=== PATIENT | female | born 1995 | race Caucasian/White ===

== ENCOUNTER 2022-03-27 00:33 | Outpatient (CLI) | payer MEDICAID ==
[~2022-03-27] VITALS: Ht 165.1 cm; Wt 75.5 kg
[2022-03-27] MEDS ORDERED: DOCO200C4 PO (00:37)
[2022-03-27 00:51] VITALS: BP 125/71
[2022-03-27 01:04] LABS: BILIRUBIN,URINE NEGATIVE (NEGATIVE); CLARITY,URINE CLEAR; COLOR,URINE YELLOW; GLUCOSE, URINE (UA) NEGATIVE (NEGATIVE); KETONES,URINE NEGATIVE (NEGATIVE); LEUKOCYTE ESTERASE ,URINE TRACE (NEGATIVE); NITRITE,URINE NEGATIVE (NEGATIVE); PH,URINE 6.5 (5-9); PROTEIN,URINE NEGATIVE (NEGATIVE)
[2022-03-27 01:18] LABS: BACTERIA,URINE TRACE /HPF; WBC,URINE RARE /HPF
[2022-03-27 01:19] VITALS: BP 125/71
[2022-03-27 01:26] VITALS: BP 125/71
[2022-03-27 01:29] LABS: AMPHETAMINE SCREEN, URINE POSITIVE (NEGATIVE); BARBITURATE SCREEN URINE NEGATIVE (NEGATIVE); BENZODIAZEPINES SCREEN URINE NEGATIVE (NEGATIVE); CANNABINOID SCREEN, URINE NEGATIVE (NEGATIVE); COCAINE SCREEN URINE NEGATIVE (NEGATIVE); METHADONE STAT NEGATIVE (NEGATIVE); OPIATE SCREEN URINE NEGATIVE (NEGATIVE); OXYCODONE STAT NEGATIVE (NEGATIVE); PROPOXYPHENE STAT NEGATIVE (NEGATIVE); TRICYCLIC ANTIDEPRESSANTS SCRE NEGATIVE (NEGATIVE)
--- NOTE | 2022-03-28 08:38 | Physician Query-Final Dx ---
ANNA03/28/22 0838: Clinic Account Progress/Dx Physician Query: Please give diagnosis Please include # weeks gestation Date of Service March 27, 2022 at 00:16 JAYLEN HUNTER MD 04/15/22 1404: Clinic Account Progress/Dx DIAGNOSIS: Diagnosis false labor ANNA,NovMarch 28, 2022 08:38 JAYLEN HUNTER MD April 15, 2022 14:04
== END 2022-03-27 02:55 | disposition left against medical advice (07) ==
LOC: LDRP 00:33 → WSo 00:33 → LDRP 02:10 → UNDOADMIN 02:11 → LDRP 02:11 → UNDODISIN 02:35 → WSo 02:55
PROVIDERS: ATTEND Obstetrics & Gynecology
DX: O47.1 False labor at or after 37 completed weeks of gestation (principal); Z3A.40 40 weeks gestation of pregnancy
CPT/HCPCS: 80306; 81000; G0463; 99213

== ENCOUNTER 2022-03-29 02:00 | Inpatient (IN) | payer SELFPAY ==
[~2022-03-29] VITALS: Ht 162.6 cm; Wt 77.5 kg
[~2022-03-29 02:00] MED LIST: DOCO200C4 PO
[2022-03-29 02:15] VITALS: BP 130/77
[2022-03-29 02:40] LABS: BILIRUBIN,URINE NEGATIVE (NEGATIVE); CLARITY,URINE CLEAR; COLOR,URINE YELLOW; GLUCOSE, URINE (UA) NEGATIVE (NEGATIVE); KETONES,URINE NEGATIVE (NEGATIVE); LEUKOCYTE ESTERASE ,URINE NEGATIVE (NEGATIVE); NITRITE,URINE NEGATIVE (NEGATIVE); PROTEIN,URINE NEGATIVE (NEGATIVE)
[2022-03-29 02:47] LABS: BACTERIA,URINE LARGE /HPF; WBC,URINE RARE /HPF
[2022-03-29 02:55] LABS: AMPHETAMINE SCREEN, URINE POSITIVE (NEGATIVE); BARBITURATE SCREEN URINE NEGATIVE (NEGATIVE); BENZODIAZEPINES SCREEN URINE NEGATIVE (NEGATIVE); CANNABINOID SCREEN, URINE NEGATIVE (NEGATIVE); COCAINE SCREEN URINE NEGATIVE (NEGATIVE); METHADONE STAT NEGATIVE (NEGATIVE); OPIATE SCREEN URINE NEGATIVE (NEGATIVE); OXYCODONE STAT NEGATIVE (NEGATIVE); PROPOXYPHENE STAT NEGATIVE (NEGATIVE); TRICYCLIC ANTIDEPRESSANTS SCRE NEGATIVE (NEGATIVE)
--- NOTE | 2022-03-29 09:09 | Diagnostic Imaging Report ---
HISTORY: , no care. TECHNIQUE: Transabdominal ultrasound of the gravid uterus. COMPARISON: None. FINDINGS: The biophysical profile score is 8 out of 8. The heart rate measures 155 BPM. presentation is cephalic. Amniotic fluid index measures 17.2 cm. Other findings including anatomic survey are in a separate report. IMPRESSION: Biophysical profile score is 8 out of 8. Dictated by: Dictated on workstation # [id number]
--- NOTE | 2022-03-29 09:09 | Diagnostic Imaging Report ---
INDICATION: . No care. 40 weeks and 2 days by LMP TECHNIQUE: Multiple real-time grayscale images were obtained over the gravid uterus. COMPARISON: None FINDINGS: There is a single live intrauterine gestation in cephalic presentation. The placenta is anterior fundal and appears mature. There is no evidence of previa. The four-chamber heart is not well seen. heart rate measures 155 BPM. Stomach is seen. The kidneys are seen. The bladder is seen. 2 umbilical arteries are seen. The cerebellum and cisterna magna are seen. The lateral ventricle is suboptimally visualized. The cord insertion is somewhat visible with color Doppler but not well seen on grayscale. Most of the upper and lower spine is visible. The amniotic fluid index measures 17.2 cm. Biometrical measurements are as follows: Biparietal 9.30 cm, age 37 weeks 6 days. Head circumference 34.04 cm, age 39 weeks 2 days. Abdominal circumference 35.65 cm, age 39 weeks 4 days. Femur length 7.14 cm, age 36 weeks 5 days. Sonographic estimate age: 38 weeks 3 days. Sonographic estimated date of delivery: 04/09/2022. Estimated Weight: 3557 gm (+/- 519 gm). LMP percentile: NA%. heart rate: 155 beats per minute. number: 1 of 1. IMPRESSION: 1. Single live intrauterine gestation measuring at 38 weeks and 3 days, which is within range of the clinical dates. 2. Anatomic survey is suboptimal due to age. Multiple structures are not visible. No abnormality is seen. Dictated by: Dictated on workstation # [id number]
[2022-03-29 09:20] VITALS: BP 132/86
[2022-03-29] MEDS: D5 LR IV SOLUTION 1,000 ML IV SCH ×4 (09:39→22:11)
[2022-03-29 10:01] LABS: BASOPHILS # (AUTO) 0.1 10^3/uL (0.0-0.1); BASOPHILS % (AUTO) 1 % (0-10); EOSINOPHILS # (AUTO) 0.5 10^3/uL (0.0-0.3); EOSINOPHILS % (AUTO) 3 % (0-10); HEMATOCRIT 27 % (35-52); HEMOGLOBIN 8.3 g/dL (11.5-16.0); LYMPHOCYTES # (AUTO) 2.2 10^3/uL (1.0-4.0); LYMPHOCYTES % (AUTO) 15 % (12-44); MEAN CORPUSCULAR HEMOGLOBIN 22 pg (25-34); MEAN CORPUSCULAR HGB CONC 30 g/dL (32-36); MEAN CORPUSCULAR VOLUME 71 fL (80-99); MONOCYTES % (AUTO) 7 % (0-12); NEUTROPHILS # (AUTO) 10.1 10^3/uL (1.8-7.8); NEUTROPHILS % (AUTO) 70 % (42-75); PLATELET COUNT 254 10^3/uL (130-400); WHITE BLOOD COUNT 14.4 10^3/uL (4.3-11.0)
[2022-03-29 10:02] LABS: ALBUMIN 2.9 GM/DL (3.2-4.5); BILIRUBIN,TOTAL 0.2 MG/DL (0.1-1.0); CREATININE SERUM 0.58 MG/DL (0.60-1.30); POTASSIUM 4.5 MMOL/L (3.6-5.0); TOTAL PROTEIN 6.2 GM/DL (6.4-8.2)
[2022-03-29 12:45] VITALS: BP 120/77
--- NOTE | 2022-03-29 14:10 | History & Physical ---
History and Physical Date Seen by Provider: March 29, 2022 Time Seen by Provider: 12:40 This patient is a 26-year-old 1 para 0 female who was admitted last evening with complaint of contractions. She is from [place] and has no local physician. Dr. Hernandez provided care for her through the night which amounted to observation because of her contractions however she demonstrated no cervical change. Call change at 7 AM and I assumed care of the patient at that point Patient has continued to contract since admission off and on sometimes as often as every 2 to 3 minutes and sometimes spaced out to 8 or 10 minutes apart. There is a category 1 heart rate tracing. Patient denies rupture membranes or bleeding. Patient reports that she did have care in [place] but as of yet we have been unable to obtain those records and we continued to pursue those records By patient's description her due date was March 27, 2022 making her 40 weeks and 2 days however we have no confirmation of that. Bedside ultrasound today showed a fetus consistent with 38 weeks and 3 days with no overt anomaly. Patient reports that she did not have a group B strep culture. She reports that she has had no problems or complications with this to date. Allergies are to Valium which causes swelling Medications are none Medical history is none Social history patient denies drug and alcohol use she does smoke about 10 cigarettes a day. Of note is that her urine drug screen was positive for amphetamines and methamphetamines Family history patient has lost significant family history of various cancers including breast and colon Lab work is as follows Laboratory Tests Test 03/29/22 02:00 03/29/22 06:17 03/29/22 09:54 Range/Units Urine Color YELLOW Urine Clarity CLEAR Urine pH 7.0 5-9 Urine Specific [place] <=1.005 1.016-1.022 Urine Protein NEGATIVE NEGATIVE Urine Glucose (UA) NEGATIVE NEGATIVE Urine Ketones NEGATIVE NEGATIVE Urine Nitrite NEGATIVE NEGATIVE Urine Bilirubin NEGATIVE NEGATIVE Urine Urobilinogen 0.2 < = 1.0 MG/DL Urine Leukocyte Esterase NEGATIVE NEGATIVE Urine RBC (Auto) NEGATIVE NEGATIVE Urine RBC NONE /HPF Urine WBC RARE /HPF Urine Squamous Epithelial Cells 2-5 /HPF Urine Crystals NONE /LPF Urine Bacteria LARGE H /HPF Urine Casts NONE /LPF Urine Mucus NEGATIVE /LPF Urine Culture Indicated YES Urine Opiates Screen NEGATIVE NEGATIVE Urine Oxycodone Screen NEGATIVE NEGATIVE Urine Methadone Screen NEGATIVE NEGATIVE Urine Propoxyphene Screen NEGATIVE NEGATIVE Urine Barbiturates Screen NEGATIVE NEGATIVE Ur Tricyclic Antidepressants Screen NEGATIVE NEGATIVE Urine Phencyclidine Screen NEGATIVE NEGATIVE Urine Amphetamines Screen POSITIVE H NEGATIVE Urine Methamphetamines Screen POSITIVE H NEGATIVE Urine Benzodiazepines Screen NEGATIVE NEGATIVE Urine Cocaine Screen NEGATIVE NEGATIVE Urine Cannabinoids Screen NEGATIVE NEGATIVE Sodium Level 136 135-145 MMOL/L Potassium Level 4.5 3.6-5.0 MMOL/L Chloride Level 106 98-107 MMOL/L Carbon Dioxide Level 18 L 21-32 MMOL/L Anion Gap 12 5-14 MMOL/L Blood Urea Nitrogen 13 7-18 MG/DL Creatinine 0.58 L 0.60-1.30 MG/DL Estimat Glomerular Filtration Rate 127 BUN/Creatinine Ratio 22 Glucose Level 93 70-105 MG/DL Calcium Level 9.0 8.5-10.1 MG/DL Corrected Calcium 9.9 8.5-10.1 MG/DL Total Bilirubin 0.2 0.1-1.0 MG/DL Aspartate Amino Transf (AST/SGOT) 18 5-34 U/L Alanine Aminotransferase (ALT/SGPT) 6 0-55 U/L Alkaline Phosphatase 212 H 40-136 U/L Total Protein 6.2 L 6.4-8.2 GM/DL Albumin 2.9 L 3.2-4.5 GM/DL Thyroid Stimulating Hormone (TSH) 1.04 0.35-4.94 UIU/ML White Blood Count 14.4 H 4.3-11.0 10^3/uL Red Blood Count 3.83 3.80-5.11 10^6/uL Hemoglobin 8.3 L 11.5-16.0 g/dL Hematocrit 27 L 35-52 % Mean Corpuscular Volume 71 L 80-99 fL Mean Corpuscular Hemoglobin 22 L 25-34 pg Mean Corpuscular Hemoglobin Concent 30 L 32-36 g/dL Red Cell Distribution Width 17.1 H 10.0-14.5 % Platelet Count 254 130-400 10^3/uL Mean Platelet Volume 10.0 9.0-12.2 fL Immature Granulocyte % (Auto) 4 % Neutrophils (%) (Auto) 70 42-75 % Lymphocytes (%) (Auto) 15 12-44 % Monocytes (%) (Auto) 7 0-12 % Eosinophils (%) (Auto) 3 0-10 % Basophils (%) (Auto) 1 0-10 % Neutrophils # (Auto) 10.1 H 1.8-7.8 10^3/uL Lymphocytes # (Auto) 2.2 1.0-4.0 10^3/uL Monocytes # (Auto) 1.0 0.0-1.0 10^3/uL Eosinophils # (Auto) 0.5 H 0.0-0.3 10^3/uL Basophils # (Auto) 0.1 0.0-0.1 10^3/uL Immature Granulocyte # (Auto) 0.5 H 0.0-0.1 10^3/uL Vital Signs Date Time Temp Pulse Resp B/P (MAP) Pulse Ox O2 Delivery O2 Flow Rate FiO2 03/29/22 09:20 36.8 93 18 132/86 (101) Room Air 03/29/22 02:15 36.8 94 16 130/77 (94) 97 Room Air 03/29/22 02:15 36.8 94 16 97 Room Air 03/29/22 02:15 36.8 94 16 97 Room Air Signs are stable. Patient is afebrile. HEENT exam is normal Neck is supple no lymphadenopathy no thyromegaly Abdomen is gravid soft nontender nondistended Extremities show no clubbing or cyanosis. There is no Homans' sign. Pelvic exam shows a cervix 2 to 3 cm dilated somewhat multipara risk in texture with a presenting part of the vertex at about a -3-4 station monitor shows contractions somewhat irregular off and on up to 2 minutes apart and spaced out up to 10 minutes of heart rate pattern is category 1 Assessment and plan Likely term possibly 40+ weeks gestation we are awaiting outside records for confirmation of her due date. An ultrasound showing 38 weeks gestation today for size would support a somewhere between 35 and 41 weeks. Patient has not demonstrated any cervical change on serial exams however if she does we would allow her to labor. If we can get confirmation of her EDC and she is in fact past 37-38 weeks we likely would go ahead and favor progressing to deliver considering that she is having regular relatively regular contractions We did obtain an ultrasound report from the [facility] showing an ultrasound done early last year with an EDC last year. Is not certain whether this patient had a termination or not but she does professed to have had no chills Patient does not have explanation for her urine drug screen being positive Likely term in early labor Allergies and Home Medications Allergies Coded Allergies: diazepam (Verified Allergy, Severe, throat closed up, 03/27/22) Patient Home Medication List Home Medication List Reviewed: Yes Docosahexanoic Acid ( Dha) 200 Mg Capsule, 200 MG PO, (Reported) Entered as Reported by: GILDARDO DIXON on 03/27/22 0037 MARIYA DAS MD March 29, 2022 14:09
[2022-03-29 17:55] VITALS: BP 122/66
[2022-03-29 19:30] VITALS: BP 129/74
[2022-03-29 23:33] VITALS: BP 116/56
[2022-03-30] VITALS (33 sets, daily range): BP systolic 101–129; BP diastolic 54–88
[2022-03-30] MEDS: D5 LR IV SOLUTION 1,000 ML IV SCH ×2 (02:24→06:25)
--- NOTE | 2022-03-30 08:27 | Progress Note ---
Standard Progress Note Progress Notes/Assess & Plan Date Seen by a Provider: March 30, 2022 Time Seen by a Provider: 08:24 Progress/Assessment & Plan This patient complains of continued and persistent contractions and increasing pain and pressure in the pelvis. She denies rupture membranes or bleeding. On admission her cervix was 2 to 3 cm dilated it had made some changes 3 cm the nurse this morning indicates that the cervix was 4 cm. We discussed active management of labor should she demonstrate cervical change to facilitate the delivery of the baby. Plan is now to go ahead with amniotomy and Pitocin augmentation if necessary. Patient will be allowed an epidural. Vital Signs Date Time Temp Pulse Resp B/P (MAP) Pulse Ox O2 Delivery O2 Flow Rate FiO2 03/30/22 03:32 36.9 71 18 117/56 (76) 96 Room Air 03/29/22 23:33 37.0 73 18 116/56 (76) 95 Room Air 03/29/22 19:30 36.8 67 18 129/74 (92) 98 Room Air 03/29/22 17:55 36.9 95 18 122/66 (84) Room Air 03/29/22 12:45 36.8 95 18 120/77 (91) Room Air 03/29/22 09:20 36.8 93 18 132/86 (101) Room Air I & O 03/30/22 07:00 Intake Total 2000 ml Balance 2000 ml Vital signs are stable. Patient is afebrile. monitor shows a category 1 heart rate tracing and contractions every 2 to 8 minutes waxing and waning The abdomen is benign/gravid Extremities show no clubbing or cyanosis. There is no Homans' sign. Pelvic exam shows a cervix 4 to 5 cm dilated 70% effaced -2 station vertex presentation. Amniotomy is performed and scalp electrode was placed Assessment and plan By patient's report of dating she is now 40 weeks and 3 days ultrasound yesterday demonstrated at 38-3/7-week fetus with estimated weight of almost 8. Amniotomy has been performed as patient has demonstrated cervical change during her period of observation so we will facilitate delivery. Patient will be allowed epidural we anticipate a vaginal delivery MARIYA DAS MD March 30, 2022 8:27 am
[2022-03-30] MEDS ORDERED: D5 LR IV SOLUTION 1,000 ML IV SCH (08:30)
[2022-03-30] MEDS ORDERED: OXYTOCIN PRE-MIX DRIP 500 ML IV SCH ×2 (08:30→14:15)
[2022-03-30] MEDS ORDERED: fentaNYL 2 mcg/ml BUPIVA 0.125 100 ML ONE (08:31)
[2022-03-30] MEDS ORDERED: AMPICILLIN FOR IV USE 2,000 MG in NS (IVPB) 50 ML IV SCH (08:36)
[2022-03-30] MEDS ORDERED: AMPICILLIN 2,000 MG/14.8 ML (IV USE) ONE (08:38)
[2022-03-30] MEDS ORDERED: NS (IVPB) 50 ML ONE (08:39)
[2022-03-30 09:32] LABS: AMPHETAMINE SCREEN, URINE POSITIVE (NEGATIVE); BARBITURATE SCREEN URINE NEGATIVE (NEGATIVE); BENZODIAZEPINES SCREEN URINE NEGATIVE (NEGATIVE); CANNABINOID SCREEN, URINE NEGATIVE (NEGATIVE); COCAINE SCREEN URINE NEGATIVE (NEGATIVE); METHADONE STAT NEGATIVE (NEGATIVE); OPIATE SCREEN URINE NEGATIVE (NEGATIVE); OXYCODONE STAT NEGATIVE (NEGATIVE); PROPOXYPHENE STAT NEGATIVE (NEGATIVE); TRICYCLIC ANTIDEPRESSANTS SCRE NEGATIVE (NEGATIVE)
[2022-03-30] MEDS ORDERED: fentaNYL INJ 100 MCG/2 ML AMP ONE (09:58)
[2022-03-30] MEDS ORDERED: BUPIVACAINE 0.25% 10 ML (SENSORCAINE) VIAL ONE (09:58)
[2022-03-30] MEDS ORDERED: ONDANSETRON 4 MG/2 ML (SDV) Z0FRAN IV PRN (10:45)
[2022-03-30] MEDS ORDERED: NALOXONE 0.4 MG/ML 1 ML (NARCAN) VIAL IV PRN (10:45)
[2022-03-30] MEDS ORDERED: diphenhydrAMINE 50 MG/ML INJ (BENADRYL) IV PRN (10:45)
[2022-03-30] MEDS ORDERED: LACTATED RINGERS 1,000 ML IV SCH (10:45)
[2022-03-30] MEDS ORDERED: EPIDURAL (fentaNYL 2 MCG/ML BUPIVA 0.125%)100 ML BAG EPI PRN (10:45)
[2022-03-30] MEDS ORDERED: AMPICILLIN FOR IV USE 1,000 MG in NS (IVPB) 50 ML IV SCH (12:45)
[2022-03-30] MEDS ORDERED: LIDOCAINE/EPI 2% 1:200,00 (XYLOCAINE) 10 ML VIAL ONE (13:09)
[2022-03-30] MEDS ORDERED: CATHETER FLUSH 10 ML SYR IV SCH (14:00)
[2022-03-30] MEDS ORDERED: ONDANSETRON 4 MG/2 ML (SDV) Z0FRAN IVP PRN (14:15)
[2022-03-30] MEDS ORDERED: BENZOCAINE/MENTHOL (DERMOPLAST) 56 ML CAN TP PRN (14:15)
[2022-03-30] MEDS ORDERED: LIDOCAINE/EPI 2% 1:200,00 (XYLOCAINE) 10 ML VIAL INJ ONE (14:15)
[2022-03-30] MEDS ORDERED: TETANUS,DIPTH,PERTUSS P/F (BOOSTRIX) 0.5 ML VIAL IM ONE (14:15)
[2022-03-30] MEDS ORDERED: oxyCODONE/APAP 5/325MG (PERCOCET 5) TABLET PO PRN (14:15)
[2022-03-30] MEDS: KETOROLAC 30 MG/ML VIAL IVP SCH ×2 (14:32→20:33)
[2022-03-30] MEDS: DOCUSATE SODIUM 100 MG (COLACE) CAP PO SCH (20:33)
--- NOTE | 2022-03-30 20:52 | OPERATIVE REPORT ---
DATE OF SERVICE: 03/30/2022 DELIVERY NOTE The patient delivered by term spontaneous vaginal delivery a viable male with Apgars of 8 and 9 at 1 and 5 minutes respectively, weight of 7 pounds 5 ounces. Cord blood pH of 7.28 and a time of 1329. The delivery was accomplished over a first-degree perineal laceration under epidural analgesia. The infant was bulb suctioned on delivery of the head and again on completion of delivery. The umbilical cord was doubly clamped, the father cut the cord, the baby was taken to the warmer as mom did not want to hold the baby immediately after delivery. The pediatric nurse in attendance for delivery. Care for the baby at the warmer. Placenta delivered spontaneously Blank. It was normal with a 3-vessel cord. The cervix, vagina, rectum, and perineum were examined and found intact, except for a first-degree perineal laceration that was repaired with a single suture of 3-0 Vicryl Rapide in the usual manner with a running lock stitch. The repair was accomplished under the epidural analgesia augmented with 1% lidocaine with epinephrine infiltrated locally as well. Sponge and needle counts were correct after completion of delivery and repair. Blood loss was around 200 to 250 mL. The patient tolerated the delivery well and remained in the LDR for recovery. The baby remained with the mom. Job ID: [id number] DocumentID: [id number] Dictated Date: 03/30/2022 14:17:30 [employer] Manager Architect Date: 03/30/2022 20:51:54 Dictated By: MARIYA DAS MD MTDD
[2022-03-31 00:30] VITALS: BP 118/66
[2022-03-31] MEDS: KETOROLAC 30 MG/ML VIAL IVP SCH (02:52)
[2022-03-31 04:15] VITALS: BP 115/62
--- NOTE | 2022-03-31 08:26 | Progress Note ---
Standard Progress Note Progress Notes/Assess & Plan Date Seen by a Provider: March 31, 2022 Time Seen by a Provider: 08:25 Progress/Assessment & Plan This patient complains of continued and persistent contractions and increasing pain and pressure in the pelvis. She denies rupture membranes or bleeding. On admission her cervix was 2 to 3 cm dilated it had made some changes 3 cm the nurse this morning indicates that the cervix was 4 cm. We discussed active management of labor should she demonstrate cervical change to facilitate the delivery of the baby. Plan is now to go ahead with amniotomy and Pitocin augmentation if necessary. Patient will be allowed an epidural. Vital Signs Date Time Temp Pulse Resp B/P (MAP) Pulse Ox O2 Delivery O2 Flow Rate FiO2 03/30/22 03:32 36.9 71 18 117/56 (76) 96 Room Air 03/29/22 23:33 37.0 73 18 116/56 (76) 95 Room Air 03/29/22 19:30 36.8 67 18 129/74 (92) 98 Room Air 03/29/22 17:55 36.9 95 18 122/66 (84) Room Air 03/29/22 12:45 36.8 95 18 120/77 (91) Room Air 03/29/22 09:20 36.8 93 18 132/86 (101) Room Air I & O 03/30/22 07:00 Intake Total 2000 ml Balance 2000 ml Vital signs are stable. Patient is afebrile. monitor shows a category 1 heart rate tracing and contractions every 2 to 8 minutes waxing and waning The abdomen is benign/gravid Extremities show no clubbing or cyanosis. There is no Homans' sign. Pelvic exam shows a cervix 4 to 5 cm dilated 70% effaced -2 station vertex presentation. Amniotomy is performed and scalp electrode was placed Assessment and plan By patient's report of dating she is now 40 weeks and 3 days ultrasound yesterday demonstrated at 38-3/7-week fetus with estimated weight of almost 8. Amniotomy has been performed as patient has demonstrated cervical change during her period of observation so we will facilitate delivery. Patient will be allowed epidural we anticipate a vaginal delivery March 31, 2022 Patient is without complaint. She is ambulating, voiding, tolerating oral intake well and has good pain control. Vital Signs Date Time Temp Pulse Resp B/P (MAP) Pulse Ox O2 Delivery O2 Flow Rate FiO2 03/31/22 04:15 36.6 66 16 115/62 (79) 95 Room Air 03/31/22 00:30 36.8 72 18 118/66 (83) 95 Room Air 03/30/22 20:33 36.8 62 18 125/80 (95) 95 Room Air 03/30/22 15:42 67 18 121/75 (90) 03/30/22 15:08 80 16 120/71 (87) 03/30/22 14:53 89 16 118/73 (88) 03/30/22 14:23 82 18 123/85 (98) 03/30/22 14:08 88 16 119/88 (98) 03/30/22 13:54 36.9 83 20 101/67 (78) 03/30/22 13:39 65 20 122/54 (76) 03/30/22 13:05 61 18 116/61 (79) 03/30/22 12:45 65 16 119/80 (93) 03/30/22 12:30 66 18 119/76 (90) 03/30/22 12:15 59 18 118/77 (91) 03/30/22 12:00 54 20 119/70 (86) 03/30/22 11:45 65 16 104/59 (74) 98 03/30/22 11:32 37.0 72 18 117/77 (90) 99 03/30/22 11:15 64 20 101/65 (77) 100 03/30/22 11:10 55 18 113/68 (83) 100 03/30/22 11:05 61 18 114/69 (84) 99 03/30/22 11:00 69 18 115/69 (84) 99 Room Air 03/30/22 10:55 66 18 120/70 (87) 99 Room Air 03/30/22 10:47 89 117/70 (86) 99 03/30/22 10:41 75 18 118/67 (84) 99 03/30/22 10:38 83 18 114/68 (83) 100 03/30/22 10:35 65 18 115/55 (75) 100 03/30/22 10:33 82 18 123/73 (90) 93 03/30/22 10:28 79 20 125/74 (91) 100 03/30/22 10:25 83 20 128/78 (95) 100 03/30/22 10:21 85 20 129/79 (96) 100 03/30/22 10:19 77 16 125/69 (87) 100 03/30/22 10:16 82 18 125/71 (89) 100 03/30/22 10:13 72 16 123/61 (81) 99 Room Air I & O 03/31/22 07:00 Intake Total 2100 ml Balance 2100 ml Vital signs are stable. Patient is afebrile. Fundus is firm below the umbilicus and nontender. Extremities show no clubbing or cyanosis. There is no Homans' sign. Assessment and plan day #1 status post term spontaneous vaginal delivery doing well. Plan is for routine convalescent care Final Diagnosis 40-week spontaneous vaginal delivery MARIYA DAS MD March 31, 2022 8:26 am
[2022-03-31] MEDS ORDERED: DOCU100C37 PO (08:28)
[2022-03-31] MEDS ORDERED: IBUP-1780 PO (08:28)
--- NOTE | 2022-03-31 08:30 | Discharge Inst-Surgical ---
Discharge Inst-Surgical Depart Medication/Instructions New, Converted or Re-Newed RX: Call to Patients Pharmacy Consults/Follow Up Patient Instructions: As directed Orders & Referrals Follow Up Appt: Call to make follow up appt. for patient in 4 weeks. Activity Per routine post vaginal delivery instructions. Please call in RX to patient pharmacy. Diet as tolerated Patient may shower or tub bathe as desired. Activity Activity as Tolerated: No Diet Discharge Diet: No Restrictions MARIYA DAS MD March 31, 2022 8:30 am
[2022-03-31 08:45] VITALS: BP 130/63
[2022-03-31] MEDS: DOCUSATE SODIUM 100 MG (COLACE) CAP PO SCH (08:53)
[2022-03-31 12:05] VITALS: BP 135/92
[2022-03-31] MEDS: IBUPROFEN 800 MG (MOTRIN) TAB PO SCH ×2 (12:05→18:06)
[2022-03-31 12:29] VITALS: BP 132/85
--- NOTE | 2022-03-31 13:40 | Anesthesia-Regional Post-Op ---
Regional Patient Condition Mental Status: Alert, Oriented x3 Circulation: Same as Pre-Op Headache: Absent Sensation: Full Recovery Motor Block: Absent Post Op Complications Complications None Follow Up Care/Instructions Patient Instructions None needed. Anesthesia/Patient Condition Patient is doing well, no complaints, stable vital signs, no apparent adverse anesthesia problems. HENRY GARCIA DO March 31, 2022 13:40
[2022-03-31 17:37] VITALS: BP 142/72
[2022-04-01 00:37] VITALS: BP 118/59
[2022-04-01] MEDS: IBUPROFEN 800 MG (MOTRIN) TAB PO SCH ×3 (00:37→11:57)
[2022-04-01] MEDS: DOCUSATE SODIUM 100 MG (COLACE) CAP PO SCH ×2 (00:37→09:40)
[2022-04-01 06:28] VITALS: BP 129/61
[2022-04-01 09:33] VITALS: BP 129/72
--- NOTE | 2022-04-01 10:04 | Progress Note ---
Standard Progress Note Progress Notes/Assess & Plan Date Seen by a Provider: April 01, 2022 Time Seen by a Provider: 10:04 Progress/Assessment & Plan This patient complains of continued and persistent contractions and increasing pain and pressure in the pelvis. She denies rupture membranes or bleeding. On admission her cervix was 2 to 3 cm dilated it had made some changes 3 cm the nurse this morning indicates that the cervix was 4 cm. We discussed active management of labor should she demonstrate cervical change to facilitate the delivery of the baby. Plan is now to go ahead with amniotomy and Pitocin augmentation if necessary. Patient will be allowed an epidural. Vital Signs Date Time Temp Pulse Resp B/P (MAP) Pulse Ox O2 Delivery O2 Flow Rate FiO2 03/30/22 03:32 36.9 71 18 117/56 (76) 96 Room Air 03/29/22 23:33 37.0 73 18 116/56 (76) 95 Room Air 03/29/22 19:30 36.8 67 18 129/74 (92) 98 Room Air 03/29/22 17:55 36.9 95 18 122/66 (84) Room Air 03/29/22 12:45 36.8 95 18 120/77 (91) Room Air 03/29/22 09:20 36.8 93 18 132/86 (101) Room Air I & O 03/30/22 07:00 Intake Total 2000 ml Balance 2000 ml Vital signs are stable. Patient is afebrile. monitor shows a category 1 heart rate tracing and contractions every 2 to 8 minutes waxing and waning The abdomen is benign/gravid Extremities show no clubbing or cyanosis. There is no Homans' sign. Pelvic exam shows a cervix 4 to 5 cm dilated 70% effaced -2 station vertex presentation. Amniotomy is performed and scalp electrode was placed Assessment and plan By patient's report of dating she is now 40 weeks and 3 days ultrasound yesterday demonstrated at 38-3/7-week fetus with estimated weight of almost 8. Amniotomy has been performed as patient has demonstrated cervical change during her period of observation so we will facilitate delivery. Patient will be allowed epidural we anticipate a vaginal delivery March 31, 2022 Patient is without complaint. She is ambulating, voiding, tolerating oral intake well and has good pain control. Vital Signs Date Time Temp Pulse Resp B/P (MAP) Pulse Ox O2 Delivery O2 Flow Rate FiO2 03/31/22 04:15 36.6 66 16 115/62 (79) 95 Room Air 03/31/22 00:30 36.8 72 18 118/66 (83) 95 Room Air 03/30/22 20:33 36.8 62 18 125/80 (95) 95 Room Air 03/30/22 15:42 67 18 121/75 (90) 03/30/22 15:08 80 16 120/71 (87) 03/30/22 14:53 89 16 118/73 (88) 03/30/22 14:23 82 18 123/85 (98) 03/30/22 14:08 88 16 119/88 (98) 03/30/22 13:54 36.9 83 20 101/67 (78) 03/30/22 13:39 65 20 122/54 (76) 03/30/22 13:05 61 18 116/61 (79) 03/30/22 12:45 65 16 119/80 (93) 03/30/22 12:30 66 18 119/76 (90) 03/30/22 12:15 59 18 118/77 (91) 03/30/22 12:00 54 20 119/70 (86) 03/30/22 11:45 65 16 104/59 (74) 98 03/30/22 11:32 37.0 72 18 117/77 (90) 99 03/30/22 11:15 64 20 101/65 (77) 100 03/30/22 11:10 55 18 113/68 (83) 100 03/30/22 11:05 61 18 114/69 (84) 99 03/30/22 11:00 69 18 115/69 (84) 99 Room Air 03/30/22 10:55 66 18 120/70 (87) 99 Room Air 03/30/22 10:47 89 117/70 (86) 99 03/30/22 10:41 75 18 118/67 (84) 99 03/30/22 10:38 83 18 114/68 (83) 100 03/30/22 10:35 65 18 115/55 (75) 100 03/30/22 10:33 82 18 123/73 (90) 93 03/30/22 10:28 79 20 125/74 (91) 100 03/30/22 10:25 83 20 128/78 (95) 100 03/30/22 10:21 85 20 129/79 (96) 100 03/30/22 10:19 77 16 125/69 (87) 100 03/30/22 10:16 82 18 125/71 (89) 100 03/30/22 10:13 72 16 123/61 (81) 99 Room Air I & O 03/31/22 07:00 Intake Total 2100 ml Balance 2100 ml Vital signs are stable. Patient is afebrile. Fundus is firm below the umbilicus and nontender. Extremities show no clubbing or cyanosis. There is no Homans' sign. Assessment and plan day #1 status post term spontaneous vaginal delivery doing well. Plan is for routine convalescent care April 01, 2022 See discharge summary Final Diagnosis 40-week spontaneous vaginal delivery MARIYA DAS MD April 01, 2022 10:04
--- NOTE | 2022-04-01 10:12 | Discharge Summary ---
Discharge Summary 40-week spontaneous vaginal delivery This patient is a 26-year-old 2 para 1 female who is admittedWith regular contractions and pain On March 28, 2022. She reports having received care in [place]. However we were unable to obtain any records for that care. Patient had been seen the prior weekend. Labor and delivery with complaint of contractions and also found to have a urine drug screen positive for amphetamines and methamphetamines. At that time patient decided to leave [facility]. Patient was observed through the early hours of March [address] Hernandez I assumed care of this patient on March 29. She was av with some vigor and some persistence through the day. Ultrasound demonstrated normal-appearing with estimated gestational age of 38 weeks and 3 days. This would have been congruent with her report of having a due date of March 27 which put her at 40 weeks and 2 days. We continued observation through March 29 and by the morning of March 30 patient was found to be dilated beyond 4 cm. She had been 2 cm on her initial evaluation had made some very slow change to 3 and in light of her progress to 4 cm on her persistent contractions and her increasing pain decision was made to perform amniotomy and augment with Pitocin to effect delivery. Patient labored fairly promptly and in the early afternoon of March for delivered by term spontaneous vaginal delivery without complication. On March 31, 2022 which was day 1 patient was ambulating, voiding, tolerating oral intake well and had good pain control. Her baby was doing well she had routine convalescent care. Now on April 01, 2022 which is day #2 patient again is ambulating well voiding well tolerating oral intake and has good pain control. We will plan for discharge home today. Her baby remains under the care of of the call v belt builder Principal diagnosis for this hospitalization is term spontaneous vaginal delivery at 40+ weeks gestation Secondary diagnoses are Spontaneous labor, Positive urine drug screen, Operations and procedures include monitoring IV fluids amniotomy Pitocin augmentation of labor spontaneous vaginal delivery with first-degree perineal laceration and repair Patient was given appropriate discharge instructions And follow-up instructions Discharge medications are MARIYA Anderson MD April 01, 2022 10:12
[2022-04-01 15:33] VITALS: BP 132/86
[2022-04-01 16:20] VITALS: BP 132/86
[2022-04-04] MEDS ORDERED: IBUPROFEN 800 MG (MOTRIN) TAB PO SCH ×2 (09:00→18:00)
== END 2022-04-01 16:20 | disposition home or self-care (01) | DRG 807 ==
LOC: WSo 02:00 → LDRP 02:05 → WSo 03-30 08:06 → LDRP 03-30 08:06
PROVIDERS: ADMIT Obstetrics & Gynecology; ATTEND Obstetrics & Gynecology
PROC: 10E0XZZ Delivery of Products of Conception, External Approach (ICD-10-PCS; principal; 2022-03-30)
PROC: 0HQ9XZZ Repair Perineum Skin, External Approach (ICD-10-PCS; 2022-03-30)
DX: O48.0 Post-term pregnancy (principal); Z37.0 Single live birth; Z3A.40 40 weeks gestation of pregnancy; O99.334 Smoking (tobacco) complicating childbirth; F17.210 Nicotine dependence, cigarettes, uncomplicated
CPT/HCPCS: 36415; 76805; 76819; 80053; 80306; 81000; 84443; 85025; 86703; 86762; 86765; 86780; 86850; 86900; 86901; 87077; 87088; 87340; 99212